=== PATIENT | female | born 1990 | race Caucasian/White ===

== ENCOUNTER 2025-10-13 11:19 | Outpatient (CLI) | payer BC, SELFPAY ==
[2025-10-13] VITALS (14 sets, daily range): BP systolic 125–142; BP diastolic 73–87; PULSE 74–91; RESP 17; TEMP 36.1; O2SAT 96; BMI 36.2
[2025-10-13 12:20] LABS: Hematocrit 36.7 % (37-47); Hemoglobin 12.3 g/dL (12.0-15.0); Mean Corp Hgb Conc 33.5 g/dL (32-36); Mean Corpuscular Volume 92.7 fL (81-99); Mean Platelet Vol. 10.0 fl (6.2-12.0); Platelet Count 380 K/mm3 (150-450); RBC Distribution Width CV 13.0 % (11.6-14.6); RBC Distribution Width SD 43.9 fl (35.1-43.9); Red Blood Count 3.96 M/mm3 (4.2-5.4); White Blood Count 9.9 K/mm3 (4.4-11.0)
[2025-10-13 13:00] LABS: Uric Acid 3.9 mg/dL (2.6-6.0)
[2025-10-13 13:18] LABS: AST(SGOT) 24 U/L (<=31); Alanine Aminotransfer ALT/SGPT 8 U/L (<=34); Estimated Creatinine Clearance 149.71 ml/min (50-250)
[2025-10-13 13:37] LABS: Creatinine, Urine (random) 95.80 mg/dL (28.00-217.00); Protein, Urine (Random) 18.6 mg/dL (0.0-12.0); Protein:Creat Ratio 194 mg/g CRE (0-200)
--- NOTE | 2025-10-16 07:42 | OB.TRI.NOTE ---
HPI - General General Date of Admission: 10/13/25 Date of Service: 10/13/25 Chief Complaint: elevated BP in office HPI Narrative JOSÉ MANUEL FAN, is a 34 F who presents from office with one elevated BP. No Headache or vision changes. PIH labs normal. Has BP cuff at home. Plan to monitor BP over the weekend. BP check on Thursday. If elevated again will diagnosis as GHTN and ancipitate induction. Patient agreeable Maternal Data Information Final PARVIN: 11/01/25 Gestational age: 37+2 PFSH PFSH Home Medications ?Medication ?Instructions ?Recorded ?Last Taken ?Type magnesium 200 mg tablet 400 mg PO PRN sleep aid 10/13/25 Unknown History vit no.95-ferrous 1 tab PO DAILY 10/13/25 10/13/25 History fumarate 28 mg-folic acid 800 mcg tablet () Allergy/AdvReac Type Severity Reaction Status Date / Time No Known Allergies Allergy Verified 10/13/25 14:08 NST FHR Rate Baby A Baseline: 135 Variability:: Moderate Accelerations:: 15 x 15 Decelerations:: None NST Reactive:: Yes Assessment & Plan (1) Elevated BP reading w/ no diagnosis of HTN: (2) 37 weeks gestation of : PLAN: Plan Bp check thursday. Precautions reviewed
== END 2025-10-13 15:20 | disposition home or self-care (01) ==
LOC: WPOUT 11:29 → WP 11:29
PROVIDERS: Obstetrics & Gynecology; PCP Physician Assistant; Referring Provider Obstetrics & Gynecology; Visit Provider Obstetrics & Gynecology
DX: O99.891 Other specified diseases and conditions complicating pregnancy (principal); R03.0 Elevated blood-pressure reading, without diagnosis of hypertension; Z3A.37 37 weeks gestation of pregnancy
CPT/HCPCS: 36415; 59025; 59050; 82565; 82570; 84156; 84450; 84460; 84550; 85027; 99221; G0378